=== PATIENT | female | born 1985 | race Caucasian/White ===

== ENCOUNTER 2017-08-26 12:10 | Outpatient (CLI) | payer BC ==
[~2017-08-26] VITALS: Ht 180.3 cm; Wt 137.3 kg
[~2017-08-26 12:10] MED LIST: CALC500T PO; IBUP-1222 PO; OXYC-302 PO; PNV1TABL4 PO
[2017-08-26 12:38] VITALS: BP 132/77
[2017-08-26 12:40] LABS: MICROSCOPIC NOT IND
== END 2017-08-26 13:30 ==
LOC: LDOP 12:10
PROVIDERS: ATTEND Obstetrics & Gynecology Gynecology
DX: O26.893 Other specified pregnancy related conditions, third trimester (principal); Z3A.34 34 weeks gestation of pregnancy
CPT/HCPCS: 59025; 81003; 87086; 87147; 99211; G0463

== ENCOUNTER 2017-09-29 17:21 | Outpatient (CLI) | payer BC ==
[~2017-09-29] VITALS: Ht 180.3 cm; Wt 141.8 kg
[2017-09-29 18:00] VITALS: BP 136/84
== END 2017-09-29 22:10 | disposition home or self-care (01) ==
LOC: LDOP 17:21
PROVIDERS: ATTEND Obstetrics & Gynecology Gynecology
DX: O26.893 Other specified pregnancy related conditions, third trimester (principal); W19.XXXA Unspecified fall, initial encounter; Z3A.39 39 weeks gestation of pregnancy
CPT/HCPCS: 36415; 59025; 85460; 86850; 86900; 99211; G0463

== ENCOUNTER 2017-10-01 04:51 | Inpatient (IN) | payer BC ==
[~2017-10-01] VITALS: Ht 180.3 cm; Wt 141.8 kg
[2017-10-01] MEDS ORDERED: OXYTOCIN 30U/ 0.9% NaCL 500ML 0 ML ONE (04:55)
[2017-10-01] MEDS ORDERED: NEWBORN KIT ONE ×2 (04:55→05:54)
[2017-10-01] MEDS ORDERED: LIDOCAINE/PF 1%, 30ML ONE (04:56)
[2017-10-01] MEDS ORDERED: MISOPROSTOL 200 MCG TABLET ONE (04:56)
[2017-10-01] MEDS ORDERED: OXYTOCIN 30U/ 0.9% NaCL 500ML 500 ML IV ONE (05:12)
[2017-10-01 05:14] VITALS: BP 139/72
[2017-10-01] MEDS ORDERED: CALCIUM CARBONATE 500 MG TAB.CHEW PO PRN ×3 (05:30→16:00)
[2017-10-01] MEDS ORDERED: PENICILLIN GK 5,000,000 UNITS in SODIUM CHLORIDE 0.9% 100 ML IVPB ONE (05:30)
[2017-10-01] MEDS ORDERED: MISOPROSTOL 25 MCG TABLET VG PRN (05:30)
[2017-10-01] MEDS ORDERED: FENTANYL PF 100 MCG/2ML IVPush PRN (05:30)
[2017-10-01] MEDS ORDERED: ONDANSETRON 2MG/ML, 2ML IVPush PRN (05:30)
[2017-10-01] MEDS ORDERED: FENTANYL PF 100 MCG/2ML IV PRN (05:30)
[2017-10-01 05:36] LABS: BASOPHILS # (AUTO) 0.01 x10^3/uL (0-0.1); BASOPHILS % (AUTO) 0 % (0-1); EOSINOPHILS # (AUTO) 0.06 x10^3/uL (0-0.4); EOSINOPHILS % (AUTO) 1 % (1-7); LYMPHOCYTES # (AUTO) 1.07 x10^3/uL (1-3.4); LYMPHOCYTES % (AUTO) 16 % (22-44); MD NO; MEAN CORPUSCULAR HEMOGLOBIN 28.1 pg (27.0-34.8); MEAN CORPUSCULAR VOLUME 85.1 fL (80-100); MEAN PLATELET VOLUME 9.4 fL (7.4-10.4); MONOCYTES # (AUTO) 0.35 x10^3/uL (0.2-0.8); MONOCYTES % (AUTO) 5 % (2-9); NEUTROPHILS # (AUTO) 5.15 x10^3/uL (1.8-6.8); NEUTROPHILS % (AUTO) 78 % (42-75); PLATELET COUNT 117 x10^3/uL (130-400); RED BLOOD COUNT 4.12 x10^6/uL (3.82-5.3); RED CELL DISTRIBUTION WIDTH 15.5 % (9.6-15.2)
[2017-10-01] MEDS: LACTATED RINGERS 1,000 ML IV SCH ×2 (05:47→08:45)
[2017-10-01] MEDS ORDERED: OXYTOCIN 30U/ 0.9% NaCL 500ML 500 ML ONE (05:54)
[2017-10-01] MEDS ORDERED: CALCIUM CARBONATE 500 MG TAB.CHEW ONE (05:54)
[2017-10-01] MEDS ORDERED: OXYTOCIN 30U/ 0.9% NaCL 500ML 500 ML IV PRN (07:07)
[2017-10-01] MEDS ORDERED: FENTANYL/BUPIV./NS/PF 250 ML EPIDCONT SCH ×2 (09:23→09:27)
[2017-10-01] MEDS ORDERED: LACTATED RINGERS 1,000 ML IV SCH (09:27)
[2017-10-01] MEDS ORDERED: LACTATED RINGERS 1,000 ML IVBOLUS PRN ×2 (09:30)
[2017-10-01] MEDS ORDERED: EPHEDRINE 50 MG/ML, 1ML IVPush PRN (09:30)
[2017-10-01] MEDS ORDERED: NALOXONE 0.4 MG/ML, 1ML IVPush PRN (09:30)
[2017-10-01] MEDS: PENICILLIN GK 2,500,000 UNITS in DEXTROSE 5% 100 ML IVPB SCH ×2 (09:44→13:35)
[2017-10-01] MEDS ORDERED: FENTANYL PF 500 MCG, BUPIVACAINE/PF 0.5%, 30ML 62.5 ML in SODIUM CHLORIDE 0.9% 177.5 ML EPIDCONT SCH (10:00)
[2017-10-01] MEDS ORDERED: MISOPROSTOL 200 MCG TABLET PR PRN (16:00)
[2017-10-01] MEDS ORDERED: ONDANSETRON 2MG/ML, 2ML IV PRN (16:00)
[2017-10-01] MEDS ORDERED: OXYcodone/APAP 5/325MG TABLET PO PRN (16:00)
[2017-10-01] MEDS ORDERED: DOCUSATE 100 MG CAPSULE PO PRN (16:00)
[2017-10-01] MEDS ORDERED: MAGNESIUM HYDROXIDE 8%, 30ML UDC PO PRN (16:00)
[2017-10-01] MEDS ORDERED: OXYcodone IR 5MG TABLET PO PRN (16:00)
[2017-10-01] MEDS ORDERED: DIPH,PERTUSS(ACELL),TET VAC/PF NC IM-VACC PRN (16:00)
[2017-10-01] MEDS ORDERED: MEASLES,MUMPS&RUBELLA VACC/PF 0.5 ML SQ-VACC PRN (16:00)
[2017-10-01] MEDS ORDERED: RHOGAM FROM BLOOD BANK 1 NOTE EA IM/IV ONE (16:00)
[2017-10-01] MEDS ORDERED: IBUPROFEN 600 MG TABLET ONE (16:02)
[2017-10-01] MEDS: IBUPROFEN 600 MG TABLET PO PRN (16:06)
[2017-10-01] MEDS: OXYTOCIN 30U/ 0.9% NaCL 500ML 500 ML IV SCH (16:50)
[2017-10-01 18:00] VITALS: BP 131/66
[2017-10-01 19:55] VITALS: BP 142/71
[2017-10-01 21:00] VITALS: BP 131/79
[2017-10-01 23:29] LABS: BASOPHILS # (AUTO) 0.02 x10^3/uL (0-0.1); BASOPHILS % (AUTO) 0 % (0-1); EOSINOPHILS # (AUTO) 0.03 x10^3/uL (0-0.4); EOSINOPHILS % (AUTO) 0 % (1-7); LYMPHOCYTES # (AUTO) 1.27 x10^3/uL (1-3.4); LYMPHOCYTES % (AUTO) 13 % (22-44); MD NO; MEAN CORPUSCULAR HEMOGLOBIN 28.7 pg (27.0-34.8); MEAN CORPUSCULAR HGB CONC 33.4 g/dL (32.4-35.8); MEAN CORPUSCULAR VOLUME 85.8 fL (80-100); MONOCYTES # (AUTO) 0.52 x10^3/uL (0.2-0.8); MONOCYTES % (AUTO) 5 % (2-9); NEUTROPHILS % (AUTO) 81 % (42-75); PLATELET COUNT 116 x10^3/uL (130-400); RED BLOOD COUNT 3.95 x10^6/uL (3.82-5.3); RED CELL DISTRIBUTION WIDTH 15.4 % (9.6-15.2)
[2017-10-01 23:35] VITALS: BP 149/76
[2017-10-02 00:35] VITALS: BP 138/90
[2017-10-02] MEDS: IBUPROFEN 600 MG TABLET PO PRN ×3 (00:36→21:05)
[2017-10-02] MEDS: LACTATED RINGERS 1,000 ML IV SCH ×3 (01:23→17:23)
[2017-10-02] MEDS: OXYTOCIN 30U/ 0.9% NaCL 500ML 500 ML IV SCH ×3 (02:00→22:00)
[2017-10-02 03:59] VITALS: BP 121/71
[2017-10-02 08:00] VITALS: BP 130/87
[2017-10-02] MEDS: PRENATAL VIT/IRON/FA 1 EACH TABLET PO SCH (09:01)
[2017-10-02 12:00] VITALS: BP 134/82
[2017-10-02 20:30] VITALS: BP 107/65
[2017-10-03 08:00] VITALS: BP 119/68
[2017-10-03] MEDS: IBUPROFEN 600 MG TABLET PO PRN (08:49)
[2017-10-03] MEDS: PRENATAL VIT/IRON/FA 1 EACH TABLET PO SCH (08:49)
[2017-10-03] MEDS ORDERED: IBUP-1222 PO (13:49)
== END 2017-10-03 14:40 | disposition home or self-care (01) | DRG 775 ==
LOC: LDIP 04:51 → 2NW 17:39
PROVIDERS: ADMIT Obstetrics & Gynecology Gynecology; ATTEND Obstetrics & Gynecology Gynecology
PROC: 10E0XZZ Delivery of Products of Conception, External Approach (ICD-10-PCS; principal; 2017-10-01)
PROC: 0KQM0ZZ Repair Perineum Muscle, Open Approach (ICD-10-PCS; 2017-10-01)
PROC: 10907ZC Drainage of Amniotic Fluid, Therapeutic from Products of Conception, Via Natural or Artificial Opening (ICD-10-PCS; 2017-10-01)
PROC: 3E033VJ Introduction of Other Hormone into Peripheral Vein, Percutaneous Approach (ICD-10-PCS; 2017-10-01)
PROC: 3E0R3BZ Introduction of Anesthetic Agent into Spinal Canal, Percutaneous Approach (ICD-10-PCS; 2017-10-01)
PROC: 00HU33Z Insertion of Infusion Device into Spinal Canal, Percutaneous Approach (ICD-10-PCS; 2017-10-01)
PROC: 30233S1 Transfusion of Nonautologous Globulin into Peripheral Vein, Percutaneous Approach (ICD-10-PCS; 2017-10-02)
DX: O66.0 Obstructed labor due to shoulder dystocia (principal); O36.63X0 Maternal care for excessive fetal growth, third trimester, not applicable or unspecified; O70.1 Second degree perineal laceration during delivery; Z3A.39 39 weeks gestation of pregnancy; Z37.0 Single live birth
CPT/HCPCS: 36415; J2790; 82803; 85025; 85461; 86850; 86900; J2540; J2590; J3010; J7120